=== PATIENT | male | born 1965 | race African-American/Black ===

== ENCOUNTER 2016-10-06 06:46 | Emergency (ER) | payer SELFPAY ==
[2016-10-06 07:14] VITALS: TEMP 97.8; BMI 30.4
[2016-10-06] MEDS ORDERED: CEFTRIAXONE 250 MG VIAL IM STA (07:57)
[2016-10-06] MEDS ORDERED: AZITHROMYCIN 250 MG TAB PO ONE (07:58)
[2016-10-06] MEDS ORDERED: METRONIDAZOLE 500 MG TAB PO ONE (07:58)
--- NOTE | 2016-10-06 08:03 | EDPRACDOC ---
- General Information Stated Complaint: ABD PAIN Time Seen by Provider: 10/06/16 07:54 Information Source: Patient Home Medications: Home Medications Lisinopril/Hydrochlorothiazide [Zestoretic 10-12.5 mg Tablet] 1 tab PO DAILY 28/08 Allergies/Adverse Reactions: Allergies Allergy/AdvReac Type Severity Reaction Status Date / Time No Known Allergies Allergy Verified 10/06/16 07:16 - History of Present Illness HPI: PT PRESENTS WITH LOWER ABDOMINAL PAIN AFTER BEING TOLD OF TRICHOMONIASIS EXPOSURE THROUGH HIS GIRLFRIEND. DENIES PENILE LESIONS OR OTHER RASH. NO PRIOR HISTORY OF STD'S. Onset: 2 days ago Urinary Pain Location: Reports: Suprapubic Symptom Onset: Reports: Gradual Pain Severity: Mild Pain Quality: Reports: Aching History of: Reports: STD (TOLD OF TRICHOMONAS EXPOSURE A FEW DAYS AGO.) Associated Signs and Symptoms: Reports: Abdominal Pain, Nausea. Denies: Fever, Vomiting ED Past Medical History - History Reviewed Yes Nurses notes reviewed and agree except as marked - Patient Medical History Cardiac History: Reports: Hypertension Psychological History: Denies: Depression Systemic History: Denies: Cancer - Social Medical History Smoking Status: Current some day smoker Lives In: Home EDM Review of Systems - Review of Systems ROS Negative Except as Marked: Yes All systems reviewed and were negative except as marked Constitutional: negative: Fever Respiratory: negative: Shortness of Breath Cardiovascular: negative: Chest Pain Gastrointestinal: Nausea, Pain. negative: Constipation, Diarrhea, Vomiting Genitourinary: negative: Dysuria, Testicular Pain, Flank Pain Integumentary: negative: Rash - Physical Exam Constitutional: Alert Oriented to: Time, Person, Place Last recorded Vital Signs: Last Vital Signs Temp 97.8 F 10/06/16 07:08 Pulse 72 10/06/16 07:08 Resp 20 10/06/16 07:08 BP 168/94 10/06/16 07:08 Pulse Ox 98 10/06/16 07:08 Oxygen Pulse Oxygen Saturation 98 O2 Device Room Air Oxygen Flow Rate Fraction of Inspired Oxygen ( FIO2) - HEENT Head: negative: Deformity, Laceration Eye Exam: negative: Conjunctival Injection, Pale Conjunctiva Oropharynx: negative: Membranes Dry Neck: negative: Limited ROM - Neurologic Memory Impaired: Normal Motor Function: Normal Mood Description: Anxious Thought: Coherent Perception: Normal Decision Time to Discharge: 08:03 - Departure Yes I personally saw and evaluated the patient. Disposition: Home Condition: Stable Final Diagnosis: Trichomonas exposure Instructions: Trichomoniasis (ED) Education/Counseling Given To: Patient Education/Counseling Given Regarding: Diagnosis, Treatment, Prognosis, Follow Up Referrals: Bertrand Gregorio MD [Primary Care Provider] - As Needed Prescriptions: No Action Lisinopril/Hydrochlorothiazide [Zestoretic 10-12.5 mg Tablet] 1 tab PO DAILY Additional Instructions: PLEASE AVOID SEXUAL CONTACT UNTIL YOU AND YOUR PARTNER ARE CLEARED.
[2016-10-06] MEDS ORDERED: LIDOCAINE 1% 5 ML (METHYLPARABEN FREE) ONE (08:05)
[2016-10-06 08:48] VITALS: BP 158/72; PULSE 76
== END 2016-10-06 08:45 | disposition home or self-care (01) ==
LOC: ED 06:46
DX: Z20.2 Contact with and (suspected) exposure to infections with a predominantly sexual mode of transmission (principal)
CPT/HCPCS: 96372; 99283; J0696; J3490